=== PATIENT | female | born 1990 | race Caucasian/White ===

== ENCOUNTER → 2017-07-11 | Outpatient (CLI) | payer BC | LOC: FCPNEURO 20:00 | PROVIDERS: ATTEND Internal Medicine Sleep Medicine | DX: G47.50 Parasomnia, unspecified (principal) ==

== ENCOUNTER → 2017-08-16 | Outpatient (CLI) | payer BC | LOC: FIMAGING 15:20 | PROVIDERS: ATTEND Family Medicine | DX: M79.671 Pain in right foot (principal); M79.672 Pain in left foot ==

== ENCOUNTER 2017-08-26 09:42 | Observation (INO) | payer BC, MEDICAID ==
--- NOTE | 2017-08-26 09:59 | CPEKG ---
Heart Rate: 106 RR Interval: 566 P-R Interval: 128 QRSD Interval: 88 QT Interval: 344 QTC Interval: 457 P Nesbit: 64 QRS Nesbit: 76 T Wave Nesbit: -17 EKG Severity - BORDERLINE ECG - EKG Impression: SINUS TACHYCARDIA EKG Impression: BORDERLINE T ABNORMALITIES, INFERIOR LEADS Electronically Signed By: Sydney Riojas 26-Aug-2017 17:39:19
[2017-08-26] MEDS ORDERED: NS 1,000 ML IV ONE ×2 (10:09→11:27)
--- NOTE | 2017-08-26 10:09 | EDPHY ---
H & P Stated Complaint: High HR, low o2, diarrhea - Personal History LMP (Females 10-55): Unknown Current Tetanus/Diphtheria Vaccine: Yes Current Tetanus Diphtheria and Acellular Pertussis (TDAP): Yes - Medical/Surgical History Hx Asthma: No Hx Chronic Respiratory Disease: No Hx Diabetes: No Hx Cardiac Disease: No Hx Renal Disease: No Hx Cirrhosis: No Hx Alcoholism: No Hx HIV/AIDS: No Hx Splenectomy or Spleen Trauma: No Other PMH: Mast cell disease, Barrett - Social History Smoking Status: Never smoked Time Seen by Provider: 08/26/17 09:55 HPI/ROS: CHIEF COMPLAINT: Dyspnea, tachycardia, feeling faint HISTORY OF PRESENT ILLNESS: 27-year-old female history of postural orthostatic tachycardia syndrome, history of mast cell disease, arrives via private vehicle complaining of feeling dyspneic, feeling faint since this morning with new onset diarrhea this morning. She has been taking intermittent prednisone for the past few days, prescribed by her shear operator helper for possible vasculitis of her bilateral 4th toes. S This has been ongoing issue followed for the past several months. She denies acute urinary abnormality, denies chest pain, denies headache, denies nuchal rigidity, denies abdominal pain.he is on daily fludrocortisone 0.1 mg for orthostatic hypotension. PRIMARY CARE PROVIDER: Dr. Gemma Garza. Primary shear operator helper is Dr. Estrada (sp?) in [place] REVIEW OF SYSTEMS: A ten point review of systems was performed and is negative with the exception of the items mentioned in the HPI PAST MEDICAL & SURGICAL HISTORY: Mast cell disease. 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 No influenza vaccination this season SOCIAL HISTORY:nonsmoker. No drug use. No cocaine use. 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 Appears to be in no acute distress. 2) HEAD: Normocephalic, atraumatic 3) HEENT: Pupils equal, round, reactive to light bilaterally. Sclera anicteric. Nasopharynx, oropharynx, clear, no lesions. No intraoral lesions. No exudate. No trismus no drooling. Ears bilaterally with normal tympanic membranes. 4) NECK: Full range of motion, no meningeal signs. 5) LUNGS: Clear auscultation bilaterally, no wheezes, no rhonchi, no retractions. 6) HEART: Regular rate and rhythm, no murmur, no heave, no gallop. 7) ABDOMEN: No guarding, no rebound, no focal tenderness, negative McBurney's, negative Goodson's, negative Rovsing's, negative peritoneal sign, 8) MUSCULOSKELETAL: Moving all extremities, no focal areas of tenderness, no obvious trauma. No peripheral edema or discoloration. Bilateral 4th toes dorsal aspect have a slight erythematous appearance, nontender. 9) BACK: No CVA tenderness, no midline vertebral tenderness, no fluctuance, no step-off, no obvious trauma, no visual or palpable abnormality. 10) SKIN: No rash, no petechiae. 11) Psychiatric: Patient is oriented X 3, there is no agitation. DIFFERENTIAL DIAGNOSIS: (Erin Hassan) Constitutional: Initial Vital Signs Temperature (C) 36.9 C 08/26/17 10:00 Heart Rate 121 H 08/26/17 10:00 Respiratory Rate 18 08/26/17 10:00 Blood Pressure 129/92 H 08/26/17 10:00 O2 Sat (%) 98 08/26/17 10:00 O2 Delivery Mode Room Air Allergies/Adverse Reactions: NSAIDS (Non-Steroidal Anti-Inflamma Allergy (Severe, Verified 08/26/17 14:13) cromolyn Allergy (Verified 08/26/17 13:51) montelukast [From Singulair] Allergy (Verified 08/26/17 13:51) dyes Allergy (Severe, Uncoded 08/26/17 14:13) fluoroquinolone antibiotics Allergy (Uncoded 08/26/17 13:51) Home Medications: Medication Instructions Recorded Ascorbic Acid [Vitamin C 500 mg 500 mg PO BID 08/26/17 (*)] EPINEPHrine [Epipen 0.3 MG] 0.3 mg IM ONCE PRN 08/26/17 Famotidine [Pepcid 20 MG (*)] 40 mg PO BID 08/26/17 Fludrocortisone Acetate [Florinef 0.1 mg PO DAILY 08/26/17 0.1 MG (RX)] Levalbuterol Inhaler [Xopenex Hfa 1 puffs IH DAILY PRN 08/26/17 Inhaler (*)] Levocetirizine Dihydrochloride 10 mg PO TID 08/26/17 [Xyzal] Levothyroxine [Synthroid 25 mcg 25 mcg PO DAILY06 08/26/17 (*)] Norethindrone-E.estradiol-Iron 1 each PO DAILY 08/26/17 [Mibelas 24 Fe Chewable Tablet] Xolair 300mg 300 mg SQ Q21D 08/26/17 Zolpidem Tartrate [Ambien 5MG (*)] 10 mg PO HS 08/26/17 diphenhydrAMINE [Benadryl 12.5 mg PO DAILY PRN 08/26/17 12.5MG/5ML Oral Liquid (*)] methylPREDNISolone [Medrol Dose 1 each PO AD 08/26/17 Enrique] predniSONE 20 mg PO DAILY PRN 08/26/17 Medical Decision Making - Diagnostics Imaging Results: Imaging Impressions Chest X-Ray 08/26/17 09:57 Impression: Mild prominent interstitial markings to the right lung base could represent mild interstitial infiltrate or pneumonitis or possibly atelectasis. Images reviewed by myself (Erin Hassan) ED Course/Re-evaluation: 12:47 p.m.: Patient has been observed in the ER for several hours, given IV hydration, discussed her diagnostic results. She remains tachycardic in no 110 to 120s. She complains of lightheadedness and inability to ambulate without assistance secondary to lightheadedness. Her x-rays show a possible early infiltrate the right lower lobe. She has history of fluoroquinolone allergy. She has been given IV azithromycin. Plan will be admission.Care of patient under supervision of secondary supervising physician Dr Riojas with whom I discussed case . 12:55 P.M.: Consultation with hospitalist, Dayanna, admit to Dr. Blas ( Erin Hassan) Other Provider: The patient was evaluated and managed by the Physician Applications System Analyst. I discussed the patient's presentation and course with the midlevel provider with them and agree with the evaluation. My co-signature indicates that I have reviewed this chart and I agree with the findings and plan of care as documented. I am the secondary supervising physician. (Sydney Riojas) - Data Points Laboratory Results: Laboratory Results 08/26/17 10:10 08/26/17 10:10 08/26/17 08/26/17 08/26/17 10:10 10:10 10:10 WBC RBC Hgb Hct MCV MCH MCHC RDW Plt Count MPV Neut % (Auto) Lymph % (Auto) [place] % (Auto) Eos % (Auto) Baso % (Auto) Nucleat RBC Rel Count Absolute Neuts (auto) Absolute Lymphs (auto) Absolute Monos (auto) Absolute Eos (auto) Absolute Basos (auto) Absolute Nucleated RBC Immature Gran % Immature Gran # D-Dimer Sodium Potassium Chloride Carbon Dioxide Anion Gap BUN Creatinine Estimated GFR Glucose Calcium Troponin I < 0.012 ng/mL ng/mL (0.000-0.034) Beta HCG, Qual NEGATIVE Nasal Influenza A PCR NEGATIVE FOR FLU A (NEGATIVE) Nasal Influenza B PCR NEGATIVE FOR FLU B (NEGATIVE) 08/26/17 08/26/17 08/26/17 10:10 10:10 10:10 WBC 11.20 10^3/uL H 10^3/uL (3.80-9.50) RBC 4.70 10^6/uL 10^6/uL (4.18-5.33) Hgb 15.0 g/dL g/dL (12.6-16.3) Hct 42.8 % % (38.0-47.0) MCV 91.1 fL fL (81.5-99.8) MCH 31.9 pg pg (27.9-34.1) MCHC 35.0 g/dL g/dL (32.4-36.7) RDW 12.3 % % (11.5-15.2) Plt Count 298 10^3/uL 10^3/uL (150-400) MPV 8.9 fL fL (8.7-11.7) Neut % (Auto) 91.8 % H % (39.3-74.2) Lymph % (Auto) 6.3 % L % (15.0-45.0) [place] % (Auto) 1.0 % L % (4.5-13.0) Eos % (Auto) 0.1 % L % (0.6-7.6) Baso % (Auto) 0.5 % % (0.3-1.7) Nucleat RBC Rel Count 0.0 % % (0.0-0.2) Absolute Neuts (auto) 10.28 10^3/uL H 10^3/uL (1.70-6.50) Absolute Lymphs (auto) 0.71 10^3/uL L 10^3/uL (1.00-3.00) Absolute Monos (auto) 0.11 10^3/uL L 10^3/uL (0.30-0.80) Absolute Eos (auto) 0.01 10^3/uL L 10^3/uL (0.03-0.40) Absolute Basos (auto) 0.06 10^3/uL 10^3/uL (0.02-0.10) Absolute Nucleated RBC 0.00 10^3/uL 10^3/uL (0-0.01) Immature Gran % 0.3 % % (0.0-1.1) Immature Gran # 0.03 10^3/uL 10^3/uL (0.00-0.10) D-Dimer 0.33 ug/mLFEU ug/mLFEU (0.00-0.50) Sodium 143 mEq/L mEq/L (134-144) Potassium 4.0 mEq/L mEq/L (3.5-5.2) Chloride 105 mEq/L mEq/L (97-110) Carbon Dioxide 25 mEq/l mEq/l (22-31) Anion Gap 13 mEq/L mEq/L (8-16) BUN 8 mg/dL mg/dL (7-23) Creatinine 0.9 mg/dL mg/dL (0.6-1.0) Estimated GFR > 60 Glucose 92 mg/dL mg/dL (70-100) Calcium 9.8 mg/dL mg/dL (8.5-10.4) Troponin I Beta HCG, Qual Nasal Influenza A PCR Nasal Influenza B PCR Medications Given: Discontinued Medications Sodium Chloride (Ns) 1,000 mls @ 0 mls/hr IV ONCE ONE PRN Reason: Wide Open Stop: 08/26/17 10:10 Last Admin: 08/26/17 10:43 Dose: 1,000 mls Sodium Chloride (Ns) 1,000 mls @ 0 mls/hr IV ONCE ONE PRN Reason: Wide Open Stop: 08/26/17 11:28 Last Admin: 11/17/17 11:45 Dose: 1,000 mls Azithromycin 500 mg/ Dextrose 255 mls @ 255 mls/hr IV EDNOW ONE PRN Reason: Protocol Stop: 08/26/17 13:42 Last Admin: 08/26/17 13:21 Dose: 255 mls Famotidine/Sodium Chloride (Pepcid 20 Mg (Premix)) 50 mls @ 200 mls/hr IV EDNOW ONE Stop: 08/26/17 14:27 Last Admin: 08/26/17 15:37 Dose: 50 mls Departure - Departure Disposition: [facility] Inpatient Acute Clinical Impression: Persistent tachycardia, POTS (postural orthostatic tachycardia syndrome) Pneumonia Qualifiers: Pneumonia type: due to unspecified organism Laterality: right Lung location: lower lobe of lung Qualified Code(s): J18.1 - Lobar pneumonia, unspecified organism Condition: Fair
[2017-08-26 10:21] LABS: % IMMATURE GRANULYOCYTES 0.3 % (0.0-1.1); ABSOLUTE IMMATURE GRANULOCYTES 0.03 10^3/uL (0.00-0.10); ADD DIFF? NO; ADD MORPH? NO; ADD SCAN? NO; ATYPICAL LYMPHOCYTE FLAG 10 (0-99); FRAGMENT RBC FLAG 0 (0-99); HEMATOCRIT 42.8 % (38.0-47.0); LEFT SHIFT FLG 0 (0-99); LIPEMIA HEMOLYSIS FLAG 90 (0-99); MEAN CELL HEMOGLOBIN 31.9 pg (27.9-34.1); MEAN CELL VOLUME 91.1 fL (81.5-99.8); MEAN PLATELET VOLUME 8.9 fL (8.7-11.7); PLATELET CLUMPS FLAG 20 (0-99); PLATELET COUNT 298 10^3/uL (150-400); RED CELL DISTRIBUTION WIDTH 12.3 % (11.5-15.2)
[2017-08-26 10:41] LABS: ANION GAP 13 mEq/L (8-16); CALCIUM 9.8 mg/dL (8.5-10.4); CARBON DIOXIDE 25 mEq/l (22-31); CHLORIDE 105 mEq/L (97-110); CREATININE 0.9 mg/dL (0.6-1.0); GLOMERULAR FILTRATION RATE > 60; GLUCOSE 92 mg/dL (70-100); SODIUM 143 mEq/L (134-144)
[2017-08-26 12:28] LABS: COLOR PALE YELLOW; LEUKOCYTE ESTERASE,URINE NEGATIVE (NEGATIVE); NITRITE,URINE NEGATIVE (NEGATIVE)
[2017-08-26 12:35] LABS: BACTERIA NONE SEEN /hpf (NONE SEEN); WBC,URINE NONE SEEN /hpf (0-3)
[2017-08-26] MEDS ORDERED: AZITHROMYCIN IV 500 MG in D5W 250 ML IV ONE (12:43)
[2017-08-26] MEDS ORDERED: FAMOTIDINE 20 MG TAB ONE (14:10)
[2017-08-26] MEDS ORDERED: FAMOTIDINE 20 MG/NACL 50 ML IV ONE (14:13)
[2017-08-26] MEDS ORDERED: PROMETHAZINE HCL 25 MG/ML INJ IVP PRN (16:26)
[2017-08-26] MEDS ORDERED: ONDANSETRON DISINTEGRATING 4 MG TAB PO PRN (16:26)
[2017-08-26] MEDS ORDERED: ONDANSETRON 4 MG/2 ML VIAL IVP PRN (16:26)
[2017-08-26] MEDS ORDERED: ACETAMINOPHEN 325 MG TAB PO PRN (16:26)
[2017-08-26] MEDS ORDERED: diphenhydrAMINE 12.5 MG/5 ML UDCUP PO PRN (16:28)
[2017-08-26] MEDS ORDERED: LEVALBUTEROL INHALER 200 PUFFS/15 GM MDI IH PRN (16:28)
[2017-08-26] MEDS ORDERED: predniSONE 20 MG TAB PO PRN (16:28)
[2017-08-26] MEDS ORDERED: NS 1,000 ML IV SCH (16:30)
[2017-08-26] MEDS ORDERED: *MD ORDERING ONLY-MEDROL DOSE PAK PO SCH (16:30)
[2017-08-26] MEDS ORDERED: XOLAIR SQ SCH (16:30)
--- NOTE | 2017-08-26 17:00 | PDGENHP ---
History and Physical - Chief Complaint tachycardia, near syncope - History of Present Illness 27 yo F with hx of POTS as well as mast cell disease and more recently diagnosed with either toe vasculitis or skin changes related to Raynauds disease. She has had 2 weeks of GI symptoms in particular diarrhea, as well as shortness of breath and generalized malaise. She was started on a medrol dose enrique recently for this possible vasculitis and notes that when she took it today , it seemed to trigger a flare of her POTS. She states in the past it has been triggered mostly by illness such as infection. She has not had her HR as fast as it was today ever in the past. Along with this fast heart rate she has been unable to really walk and needed to get carried into the ER. She has had sob but no cough, no fevers or chills though she has felt flushed. Her bilateral 4th toes have been red and with areas of lesions on them. She has not had these biopsied but the forest scientist she saw ordered some blood work that she has not seen results from yet. History Information - Allergies/Home Medication List Allergies/Adverse Reactions: NSAIDS (Non-Steroidal Anti-Inflamma Allergy (Severe, Verified 08/26/17 14:13) cromolyn Allergy (Verified 08/26/17 13:51) montelukast [From Singulair] Allergy (Verified 08/26/17 13:51) dyes Allergy (Severe, Uncoded 08/26/17 14:13) fluoroquinolone antibiotics Allergy (Uncoded 08/26/17 13:51) Home Medications: Ascorbic Acid [Vitamin C 500 mg (*)] 500 mg PO BID 08/26/17 [Last Taken 08/26/17 ] EPINEPHrine [Epipen 0.3 MG] 0.3 mg IM ONCE PRN 08/26/17 [Last Taken Unknown] Famotidine [Pepcid 20 MG (*)] 40 mg PO BID 08/26/17 [Last Taken 08/26/17] Fludrocortisone Acetate [Florinef 0.1 MG (RX)] 0.1 mg PO DAILY 08/26/17 [Last Taken 08/26/17] Levalbuterol Inhaler [Xopenex Hfa Inhaler (*)] 1 puffs IH DAILY PRN 08/26/17 [ Last Taken Unknown] Levocetirizine Dihydrochloride [Xyzal] 10 mg PO TID 08/26/17 [Last Taken ] Levothyroxine [Synthroid 25 mcg (*)] 25 mcg PO DAILY06 08/26/17 [Last Taken ] Norethindrone-E.estradiol-Iron [Mibelas 24 Fe Chewable Tablet] 1 each PO DAILY 08/26/17 [Last Taken 08/26/17] Xolair 300mg 300 mg SQ Q21D 08/26/17 [Last Taken 08/25/17] Zolpidem Tartrate [Ambien 5MG (*)] 10 mg PO HS 08/26/17 [Last Taken 08/25/17] diphenhydrAMINE [Benadryl 12.5MG/5ML Oral Liquid (*)] 12.5 mg PO DAILY PRN 08/26 [Last Taken Unknown] methylPREDNISolone [Medrol Dose Enrique] 1 each PO AD 08/26/17 [Last Taken 08/26/17] predniSONE 20 mg PO DAILY PRN 08/26/17 [Last Taken Unknown] I have personally reviewed and updated: family history, medical history, social history, surgical history - Past Medical History asthma Additional medical history: POTS. mast cell disease. ? 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 Review of Systems: ROS: 10pt was reviewed & negative except for what was stated in HPI & below Physical Exam Physical Exam: Temp Pulse Resp BP Pulse Ox 37.2 C 112 H 12 125/72 H 92 08/26/17 15:20 08/26/17 15:20 08/26/17 15:20 08/26/17 15:20 08/26/17 15:20 Constitutional: no apparent distress, appears nourished Eyes: PERRL, anicteric sclera Ears, Nose, Mouth, Throat: moist mucous membranes Cardiovascular: regular rate and rhythym, no murmur, rub, or gallop Respiratory: no respiratory distress, no rales or rhonchi Gastrointestinal: normoactive bowel sounds, soft, non-tender abdomen Genitourinary: no bladder tenderness Skin: warm, erythema, other (erythema and violaceous plaques on 4th toe L > R) Musculoskeletal: full muscle strength Neurologic: AAOx3 Psychiatric: interacting appropriately, not anxious, not encephalopathic Lab Data & Imaging Review 08/26/17 10:10 08/26/17 10:10 WBC 11.20 10^3/uL (3.80-9.50) H 08/26/17 10:10 RBC 4.70 10^6/uL (4.18-5.33) 08/26/17 10:10 Hgb 15.0 g/dL (12.6-16.3) 08/26/17 10:10 Hct 42.8 % (38.0-47.0) 08/26/17 10:10 MCV 91.1 fL (81.5-99.8) 08/26/17 10:10 MCH 31.9 pg (27.9-34.1) 08/26/17 10:10 MCHC 35.0 g/dL (32.4-36.7) 08/26/17 10:10 RDW 12.3 % (11.5-15.2) 08/26/17 10:10 Plt Count 298 10^3/uL (150-400) 08/26/17 10:10 MPV 8.9 fL (8.7-11.7) 08/26/17 10:10 Neut % (Auto) 91.8 % (39.3-74.2) H 08/26/17 10:10 Lymph % (Auto) 6.3 % (15.0-45.0) L 08/26/17 10:10 [place] % (Auto) 1.0 % (4.5-13.0) L 08/26/17 10:10 Eos % (Auto) 0.1 % (0.6-7.6) L 08/26/17 10:10 Baso % (Auto) 0.5 % (0.3-1.7) 08/26/17 10:10 Nucleat RBC Rel Count 0.0 % (0.0-0.2) 08/26/17 10:10 Absolute Neuts (auto) 10.28 10^3/uL (1.70-6.50) H 08/26/17 10:10 Absolute Lymphs (auto) 0.71 10^3/uL (1.00-3.00) L 08/26/17 10:10 Absolute Monos (auto) 0.11 10^3/uL (0.30-0.80) L 08/26/17 10:10 Absolute Eos (auto) 0.01 10^3/uL (0.03-0.40) L 08/26/17 10:10 Absolute Basos (auto) 0.06 10^3/uL (0.02-0.10) 08/26/17 10:10 Absolute Nucleated RBC 0.00 10^3/uL (0-0.01) 08/26/17 10:10 Immature Gran % 0.3 % (0.0-1.1) 08/26/17 10:10 Immature Gran # 0.03 10^3/uL (0.00-0.10) 08/26/17 10:10 D-Dimer 0.33 ug/mLFEU (0.00-0.50) 08/26/17 10:10 Sodium 143 mEq/L (134-144) 08/26/17 10:10 Potassium 4.0 mEq/L (3.5-5.2) 08/26/17 10:10 Chloride 105 mEq/L (97-110) 08/26/17 10:10 Carbon Dioxide 25 mEq/l (22-31) 08/26/17 10:10 Anion Gap 13 mEq/L (8-16) 08/26/17 10:10 BUN 8 mg/dL (7-23) 08/26/17 10:10 Creatinine 0.9 mg/dL (0.6-1.0) 08/26/17 10:10 Estimated GFR > 60 08/26/17 10:10 Glucose 92 mg/dL (70-100) 08/26/17 10:10 Calcium 9.8 mg/dL (8.5-10.4) 08/26/17 10:10 Troponin I < 0.012 ng/mL (0.000-0.034) 08/26/17 10:10 Beta HCG, Qual NEGATIVE 08/26/17 10:10 Urine Color PALE YELLOW 08/26/17 Unknown Urine Appearance CLEAR 08/26/17 Unknown Urine pH 8.0 (5.0-7.5) H 08/26/17 Unknown Ur Specific [place] 1.008 (1.002-1.030) 08/26/17 Unknown Urine Protein NEGATIVE (NEGATIVE) 08/26/17 Unknown Urine Ketones NEGATIVE (NEGATIVE) 08/26/17 Unknown Urine Blood NEGATIVE (NEGATIVE) 08/26/17 Unknown Urine Nitrate NEGATIVE (NEGATIVE) 08/26/17 Unknown Urine Bilirubin NEGATIVE (NEGATIVE) 08/26/17 Unknown Urine Urobilinogen NEGATIVE EU (0.2-1.0) 08/26/17 Unknown Ur Leukocyte Esterase NEGATIVE (NEGATIVE) 08/26/17 Unknown Urine RBC 1-3 /hpf (0-3) 08/26/17 Unknown Urine WBC NONE SEEN /hpf (0-3) 08/26/17 Unknown Ur Epithelial Cells TRACE /lpf (NONE-1+) 08/26/17 Unknown Urine Bacteria NONE SEEN /hpf (NONE SEEN) 08/26/17 Unknown Urine Glucose NEGATIVE (NEGATIVE) 08/26/17 Unknown Nasal Influenza A PCR NEGATIVE FOR FLU A (NEGATIVE) 08/26/17 10:10 Nasal Influenza B PCR NEGATIVE FOR FLU B (NEGATIVE) 08/26/17 10:10 Visualized and Interpreted Chest x-ray results: Yes Chest X-Ray results: infiltrate (atelectasis versus pna RLL) Visualized and Interpreted EKG results: Yes EKG Interpretation: Positive for: T waves inversion EKG additional interpertation: sinus tachycardia Assessment & Plan Assessment: POTS (postural orthostatic tachycardia syndrome) (Acute) Pneumonia (Acute) 27 yo F with PMH of POTS, mast cell disease admitted with tachycardia and near syncope # tachycardia/near syncope: with known underlying POTS per her report, she is currently without care by cardiology and looking for a new shredder tender peat. Her HR remains in the low 110s but she is quite symptomatic especially when going from sitting to standing. Has received IVF already from ER and will not rebolus but continue at low rate. Will trend trops, monitor on tele and obtain an echo in the morning. She notes that she has a history of serial abnormal echo's but is not sure what was abnormal about them. # pna: suspect RLL pna noted on cxr, atelectasis versus pna. Given several days of sob, malaise and flushing and difficult to exclude concurrent pna, will plan to treat for a short course. Already received levofloxacin in ER and will continue. # leukocytosis: in setting of presumed pna, doubt driven by steroids as she notes only receiving one dose of dexamethasone, will trend # mast cell disease: followed by rheumatology/hematology and will continue her op meds, unclear if related to above # dispo: observation status, will likely be able to dc in am Patient new to my care. Old records reviewed and summarized as above.
[2017-08-26 19:20] LABS: LACGHOST ORDER
[2017-08-26] MEDS ORDERED: LIDOCAINE 1% 5 ML SDV ID ONE (19:45)
--- NOTE | 2017-08-26 20:15 | POSTOPPROG ---
Post Op Note Date of Operation: 08/26/17 Surgeon: Laron Mckeon Anesthesia: Local (Specify) Pre-op Diagnosis: rule out vasculitis Procedure: skin biopsy right 4th toe Inf/Abcess present in the surg proc area at time of surgery?: No Specimen(s): 3.5 mm punch skin anterior R 4th toe
[2017-08-26] MEDS ORDERED: FAMOTIDINE 20 MG TAB PO SCH (21:00)
[2017-08-26] MEDS ORDERED: ZOLPIDEM TARTRATE 5 MG TAB PO SCH (21:00)
[2017-08-26] MEDS ORDERED: ASCORBIC ACID 500 MG TAB PO SCH (21:00)
[2017-08-26] MEDS: FAMOTIDINE 40 MG PO SCH (21:24)
[2017-08-26] MEDS: LEVOCETIRIZINE DIHYDROCHLORIDE 10 MG PO SCH (21:24)
--- NOTE | 2017-08-26 22:39 | GOP ---
[f rep st] OPERATIVE REPORT DATE OF OPERATION: 08/26/2017 SURGEON: Laron Mckeon MD ANESTHESIA: Local. PREOPERATIVE DIAGNOSIS: Rule out vasculitis. POSTOPERATIVE DIAGNOSIS: Rule out vasculitis. PROCEDURE PERFORMED: Skin biopsy, right anterior 4th toe (3.5 mm punch). FINDINGS: SPECIMENS: Tissue submitted in formalin for permanent section. ESTIMATED BLOOD LOSS: Zero. DESCRIPTION OF PROCEDURE: After informed consent was obtained, the patient was positioned supine. T he right distal foot was prepped and draped in the usual fashion. Before proceeding, the patient con firmed consent and reason for the biopsy. 1% lidocaine plain was used to infiltrate the skin over the right 4th toe where she had discoloration for the past 2 months. A 3.5 mm punch of skin was obtained and from the subcutaneous tiss ues with iris scissors. This was placed in formalin. A single 4-0 Prolene suture was used to close the defect and a Band-Aid applied. Tissue was submitted in formalin for permanent section. COMPLICATIONS: None. /[id number]/MODL
[2017-08-26] MEDS ORDERED: ZOLPIDEM TARTRATE PO SCH (22:45)
[2017-08-26] MEDS ORDERED: traMADol 50 MG TAB PO PRN (22:53)
[2017-08-27] MEDS ORDERED: ONDANSETRON DISINTEGRATING 4 MG TAB PO PRN (05:30)
[2017-08-27 05:53] LABS: % IMMATURE GRANULYOCYTES 0.2 % (0.0-1.1); ABSOLUTE IMMATURE GRANULOCYTES 0.02 10^3/uL (0.00-0.10); ADD DIFF? NO; ADD MORPH? NO; ADD SCAN? NO; ATYPICAL LYMPHOCYTE FLAG 10 (0-99); FRAGMENT RBC FLAG 0 (0-99); HEMATOCRIT 36.3 % (38.0-47.0); LEFT SHIFT FLG 0 (0-99); LIPEMIA HEMOLYSIS FLAG 80 (0-99); MEAN CELL HEMOGLOBIN CONCENTR. 33.1 g/dL (32.4-36.7); MEAN CELL VOLUME 93.8 fL (81.5-99.8); MEAN PLATELET VOLUME 9.1 fL (8.7-11.7); PLATELET CLUMPS FLAG 0 (0-99); PLATELET COUNT 227 10^3/uL (150-400); RED BLOOD CELL COUNT 3.87 10^6/uL (4.18-5.33); RED CELL DISTRIBUTION WIDTH 12.4 % (11.5-15.2)
[2017-08-27] MEDS ORDERED: LEVOTHYROXINE 50 MCG TAB PO SCH (06:00)
[2017-08-27] MEDS ORDERED: LEVOTHYROXINE 25 MCG TAB PO SCH (06:00)
[2017-08-27 06:10] LABS: SEDIMENTATION RATE 7 MM/HR (0-20)
[2017-08-27 06:27] LABS: ANION GAP 7 mEq/L (8-16); C-REACTIVE PROTEIN < 5.0 mg/L (<10.0); CALCIUM 8.3 mg/dL (8.5-10.4); CARBON DIOXIDE 24 mEq/l (22-31); CHLORIDE 109 mEq/L (97-110); CREATININE 0.8 mg/dL (0.6-1.0); GLOMERULAR FILTRATION RATE > 60; GLUCOSE 78 mg/dL (70-100); POTASSIUM 3.9 mEq/L (3.5-5.2); SODIUM 140 mEq/L (134-144)
[2017-08-27 08:07] VITALS: BP 104/63; PULSE 93; RESP 13; TEMP 98.6; O2SAT 97
[2017-08-27] MEDS: FAMOTIDINE 40 MG PO SCH (08:12)
[2017-08-27] MEDS: LEVOCETIRIZINE DIHYDROCHLORIDE 10 MG PO SCH (08:13)
[2017-08-27] MEDS ORDERED: [UNRECOGNIZED DRUG - OTHER] PO SCH (09:00)
[2017-08-27] MEDS ORDERED: FLUDROCORTISONE ACETATE 0.1 MG TAB PO SCH (09:00)
--- NOTE | 2017-08-27 09:31 | GCON ---
[f rep st] CONSULTATION CARDIAC CONSULTATION DATE OF CONSULTATION: 08/27/2017 CHIEF COMPLAINT: Tachycardia. HISTORY OF PRESENT ILLNESS: This is a 27-year-old female, who has a diagnosis of POTS syndrome diagn osed in [place] a number of years ago and has been on chronic stable medications. She currently is on Florinef 0.1 mg p.o. daily. She is intolerant of other medications and apparently has contraindic ations to beta blockers due to her use of EpiPen's. She recently had a toe skin change consistent wi th Raynaud or possibly vasculitis. She had a biopsy done yesterday. She was on a Solu-Medrol Dosepa k and noted her heart rate was faster than her normal 80s to 90s, and she has near syncope apparently . She also was admitted with fevers. Overnight, she has had sinus rhythm with some sinus tachycardi a. Heart rate is now 86, which she says is basically her baseline. She apparently had history of an abnormal echocardiogram with a mitral valve prolapse and tricuspid regurgitation, last evaluated in 2014. She does have an appointment in a few weeks with a forestry workers in [place], where she lives. A t this point, she is asymptomatic. PAST HISTORY: Includes: 1. POTS as above. 2. A history of mast cell disease. 3. Asthma. HOME MEDICATIONS: Include vitamin C, Florinef, various albuterol inhalers, recent prednisone. REVIEW OF SYSTEMS: A 10-point system review is negative except as outlined in HPI. FAMILY HISTORY: None significant. 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 Lives in [place]. She is a non smoker. Does not have alcohol or drug abuse issues. EXAMINATION: VITAL SIGNS: Blood pressure is 104/63, heart rate of 80s to 90s sinus. GENERAL: Erika g female in no acute distress. HEENT: Mouth/oropharynx is clear. BACK: Without palpable tendernes s. LUNGS: Clear without wheezing. CARDIOVASCULAR: Regular rate and rhythm. I could not hear a mu rmur, gallop or rubs. No JVD. ABDOMEN: Soft, nontender. MUSCULOSKELETAL: No edema. LABORATORY DATA: White count 10, hemoglobin 12. Potassium 4.0 creatinine 0.9. Troponins negative. EKG: Sinus tachycardia. ASSESSMENT: 1. History of postural orthostatic tachycardia syndrome, on Florinef. Patient at baseline at this t kacy. Heart rate probably exacerbated by steroids, which she has had in the past and had a similar re action. She is on chronic stable medications from prior forestry workers and has followup with a new car diologist in [place] in the next week. At this point, no changes in cardiac medication. Continue hyd ration status as needed. 2. Questionable history of abnormal echocardiogram. Last echo in 2014. Will repeat echocardiogram at this time. 3. Possible vasculitis versus Raynaud's. Biopsy of her foot is pending. /[id number]/MODL
--- NOTE | 2017-08-27 10:44 | ECHO ---
[email or web address] [address] [address] Main: [phone] Fax: Transthoracic Echocardiogram Name: SHUN MCKEON MR#: [id number] Study Date: 08/27/2017 Study Time: 09:26 AM Date of : 1990 Age: 27 year(s) Height: 170.2 cm (67 in.) Weight: 61.24 kg (135 lb.) BSA: 1.71 m2 Gender: Female Examination: Echo Indication: POTS Image Quality: Contrast: Requested by: Desmond Blas BP: 104 mmHg/63 mmHg Heart Rate: Rhythm: Indication: POTS Procedure Staff Surface Supervisor: Nino Donaldson Reading Physician: David Galloway Requesting Provider: Conclusions: Normal size left ventricle. EF is 71 %. No regional wall motion abnormality. Normal size right ventricle. Normal RV function. Trivial mitral valve regurgitation. Mild tricuspid regurgitation is present. The pulmonary artery pressure is normal. There is no previous echocardiogram for comparison. Measurements: Chambers Valvular Assessment AV/MV Valvular Assessment TV/PV Normal Normal Normal Name Value Range Name Value Range Name Value Range Ao Araseli (MM): 2.2 cm (2.2 cm-3.7 AV Vmax: 1.29 m/s (1 m/s-1.7 TR Vmax: 2.46 mm/s ( - ) cm) m/s) TR PGmax: 24 mmHg ( - ) IVSd (2D): 0.7 cm (0.6 cm-1.1 AV maxP mmHg ( - ) syst. PAP: 29 mmHg ( - ) cm) LVOT Vmax: 0.93 m/s (0.7 m/s-1.1 PV Vmax: 0.87 m/s (0.6 m/s-0.9 LVDd (2D): 4.6 cm (3.9 cm-5.3 m/s) m/s) cm) MV E Vmax: 0.83 m/s ( - ) PV PGmax: 3 mmHg ( - ) LVDs (2D): 2.7 cm (2.1 cm-4 MV A Vmax: 0.59 m/s ( - ) cm) MV E/A: 1.41 ( - ) LVPWd (2D): 0.8 cm ( - ) LVEF (2D): 71 (>=54 %) Continued Measurements: Chambers Valvular Assessment AV/MV Valvular Assessment TV/PV Name Value Name Value Name Value Patient: SHUN MCKEON Study Date: 08/27/2017 Page 1 of 2 09:26 AM LADs Lon.4 cm MV E/E' Septal: 6.10 CVP (est.): 5 mmHg LA Area: 9.4 cm2 MV E/E' Lateral: 6.10 Findings: Left Ventricle: Normal size left ventricle. No LV hypertrophy. Normal global systolic LV function. EF is 71 %. No regional wall motion abnormality. Normal diastolic LV function. Right Ventricle: Normal size right ventricle. Normal RV function. Left Atrium: The left atrium is normal in size. Right Atrium: The right atrium is normal in size. Mitral Valve: The mitral valve is normal in appearance. Trivial mitral valve regurgitation. Aortic Valve: The aortic valve is normal in appearance and function. There is no aortic valve regurgitation. Tricuspid Valve: The tricuspid valve is normal in appearance and function. Mild tricuspid regurgitation is present. The pulmonary artery pressure is normal. Pulmonic Valve: The pulmonic valve is normal in appearance and function. Aorta: The aorta is normal. Pericardium: No pericardial effusion. (No Signature Object) Patient: SHUN MCKEON Study Date: 08/27/2017 Page 2 of 2 09:26 AM D:_[id number]
[2017-08-27] MEDS ORDERED: AZITHROMYCIN 250 MG TAB PO SCH (12:00)
--- NOTE | 2017-08-27 12:02 | PDDCSUM ---
Discharge Summary Discharge Summary: Dates of service 08/26-08/27/17 Procedures: skin biopsy Consultations: cardiology, general surgery Hospital course by problem: # tachycardia/near syncope: with known underlying POTS per her report, being treated with florinef as an OP. HR has been in the 90s but patient remains somewhat concerned about her sxs and that this represents something new wrong with her. Cardiology evaluated and do not recommend any changees in her current management. Echo wnl. PCP is now working her up for porphyria and placed orders for this while she is here--she can f/u with her PcP for further evaluation. Think this is unlikley. # pna: suspect early RLL pna noted on cxr, atelectasis versus pna. Will treat for short course with azithromycin. 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 Biopsy obtained last night and patient will f/u with her pcp for results. Holding off on further steroids for now. 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 DC home f/u with PCP Continue current medications and total 5 day course of azithro.
[2017-08-27] MEDS ORDERED: FAMOTIDINE 20 MG TAB PO ONE (14:08)
--- NOTE | 2017-08-27 14:49 | ASDISCHSUM ---
Discharge Information Plan Status:Home with No Needs Medically Cleared to Leave:08/26/2017 Discharge Date:08/27/2017 01:40 PM CM D/C Disposition:Home, Routine, Self-Care ADT D/C Disposition:Home, Routine, Self-Care Projected Discharge Date:08/27/2017 01:40 PM Transportation at D/C:Family Discharge Delay Reason: Follow-Up Date:08/27/2017 01:40 PM Discharge Slot: Final Diagnosis:Postural orthostatic tachycardia syndrome, PNA, mast cell disease, near syncope Placement Information Patient Contact Information Contact Name:TERESA Relationship: Address: Home Phone: Work Phone: City: Alternate Phone: State/[employer] Code: Email: Financial Information Financial Class: Primary Plan Desc:[employer]ICA[employer] HE[employer] 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 Pt admitted w/ postural orthostatic tachycardia syndrome, PNA and hx of mast cell dx. 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 Per notes, pt to discharge home independently w/ no identified needs. Pt to follow up as directed. IM not signed, not applicable. CM avail for any further issues or concerns. Date Signed: 08/27/2017 02:48 PM Electronically Signed By:Jessika Butler RN Intervention Information
--- NOTE | 2017-08-27 14:49 | ASMTCMCOM ---
CM Note CM Note Notes: Reviewed chart regarding discharge plan, pt's progress. Pt admitted w/ postural orthostatic tachycardia syndrome, PNA and hx of mast cell dx. 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 Per MD notes, pt to discharge home independently w/ no identified needs. Pt to follow up as directed. IM not signed, not applicable. CM avail for any further issues or concerns. Date Signed: 08/27/2017 02:48 PM Electronically Signed By:Jessika Butler RN
[2017-08-30 11:57] LABS: PORPHOBILINOGEN URINE QN 0.1 mcmol/L (<=1.3)
== END 2017-08-27 13:40 | disposition home or self-care (01) ==
LOC: F2W 15:00
PROVIDERS: ADMIT Internal Medicine; ATTEND Internal Medicine
PROC: 0HBMXZX Excision of Right Foot Skin, External Approach, Diagnostic (ICD-10-PCS; principal; 2017-08-26)
DX: R00.0 Tachycardia, unspecified (principal); R23.8 Other skin changes; R55 Syncope and collapse; J18.9 Pneumonia, unspecified organism; D72.829 Elevated white blood cell count, unspecified; D47.02 Systemic mastocytosis
CPT/HCPCS: 11100; 71020; 93005; 93306; G0378; 82397-90; 96374; J0456

== ENCOUNTER 2017-10-21 05:31 | Day surgery (SDC) | payer MEDICAID ==
[2017-10-21] MEDS ORDERED: ceFAZolin 2 GM/SWFI 2 GM/20 ML SYR IVP ONE (06:03)
[2017-10-21] MEDS ORDERED: LR 1,000 ML IV ONE (06:28)
[2017-10-21] MEDS ORDERED: MIDAZOLAM 2 MG/2 ML VIAL IVP ONE (06:56)
--- NOTE | 2017-10-21 06:56 | PDANEPAE ---
ANE History of Present Illness port placement ANE Past Medical History - Cardiovascular History Hx Hypertension: No Hx Arrhythmias: No Hx Chest Pain: No Hx Coronary Artery / Peripheral Vascular Disease: No Hx CHF / Valvular Disease: No Hx Palpitations: No Cardiovascular History Comment: POTS. - Pulmonary History Hx COPD: No Hx Asthma/Reactive Airway Disease: Yes Hx Oxygen in Use at Home: No Hx Sleep Apnea: No Sleep Apnea Screening Result - Last Documented: Negative Pulmonary History Comment: zopinex - Neurologic History Hx Cerebrovascular Accident: No Hx Seizures: No Hx Dementia: No - Endocrine History Hx Diabetes: No - Renal History Hx Renal Disorders: No - Liver History Hx Hepatic Disorders: No - Neurological & Psychiatric Hx Hx Neurological and Psychiatric Disorders: Yes Neurological / Psychiatric History Comment: raynards,disautonomia, - Cancer History Hx Cancer: No - Congenital Disorder History Hx Congenital Disorders: No - GI History Hx Gastrointestinal Disorders: Yes Gastrointestinal History Comment: gastroperisis - Other Health History 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 - Chronic Pain History Chronic Pain: No - Surgical History Prior Surgeries: none ANE Review of Systems Review of systems is: negative Review of Systems: - Exercise capacity METS (RN): 4 METS ANE Patient History - Allergies Allergies/Adverse Reactions: NSAIDS (Non-Steroidal Anti-Inflamma Allergy (Severe, Verified 10/21/17 06:18) cromolyn Allergy (Verified 10/21/17 06:18) montelukast [From Singulair] Allergy (Verified 10/21/17 06:18) dyes Allergy (Severe, Uncoded 08/26/17 14:13) fluoroquinolone antibiotics Allergy (Uncoded 08/26/17 13:51) - Home Medications Home medications: home medication list seen and reviewed Home Medications: Ascorbic Acid [Vitamin C 500 mg (*)] 08/26/17 [Last Taken 08/26/17] EPINEPHrine [Epipen 0.3 MG] 08/26/17 [Last Taken Unknown] Famotidine [Pepcid] 08/26/17 [Last Taken 08/26/17] Fludrocortisone Acetate [Florinef] 08/26/17 [Last Taken 08/26/17] Levalbuterol Inhaler [Xopenex Hfa Inhaler (*)] 08/26/17 [Last Taken Unknown] Levocetirizine Dihydrochloride [Xyzal] 08/26/17 [Last Taken 08/26/17] Levothyroxine Sodium 08/26/17 [Last Taken 08/26/17] Norethindrone-E.estradiol-Iron [Mibelas 24 Fe Chewable Tablet] 08/26/17 [Last Taken 08/26/17] Xolair 300mg 08/26/17 [Last Taken 10/21/17 05:00] Zolpidem Tartrate [Ambien 10 mg] 08/26/17 [Last Taken 08/25/17] diphenhydrAMINE [Benadryl 12.5MG/5ML Oral Liquid (*)] 08/26/17 [Last Taken Unknown] Azithromycin [Zithromax] 10/19/17 [Last Taken Unknown] - NPO status NPO Status: no food or drink >8 hours NPO Since - Liquids (Date): 10/20/17 NPO Since - Liquids (Time): 23:00 NPO Since - Solids (Date): 10/20/17 NPO Since - Solids (Time): 20:00 - Anes Hx Hx Anesthesia Complications (with details): hives with propofol in the past - Smoking Hx Smoking Status: Never smoked - Family Anes Hx Family Anes Hx: none Family Hx Anesthesia Complications: none ANE Labs/Vital Signs - Vital Signs Vital Signs: reviewed preoperatively; see RN documention for details Blood Pressure: 108/75 Heart Rate: 101 Respiratory Rate: 16 O2 Sat (%): 98 Height: 170.18 cm Weight: 58.967 kg ANE Physical Exam - Airway Neck exam: FROM Mallampati Score: Class 1 - Pulmonary Pulmonary: no respiratory distress - Cardiovascular Cardiovascular: regular rate and rhythym - ASA Status ASA Status: III ANE Anesthesia Plan Total IV Anesthesia: Yes
[2017-10-21] MEDS ORDERED: BUPIVACAINE 0.5% 30 ML SDV ONE (06:58)
--- NOTE | 2017-10-21 07:00 | PDHPUP ---
History & Physical Update H&P update statement: This history and physical update is based on an assessment of the patient which was completed after admission or registration (within 24 hours), but prior to the surgery/procedure. H&P update: H&P reviewed & patient examined, no change in patient's condition since H&P completed
[2017-10-21] MEDS ORDERED: PROPOFOL/EMULSION 500 MG/50 ML BOTTLE IV ONE (07:12)
[2017-10-21] MEDS ORDERED: LIDOCAINE 2% 100 MG/5 ML SYR ONE (07:12)
[2017-10-21] MEDS ORDERED: METOCLOPRAMIDE 10 MG/2 ML VIAL ONE (07:13)
[2017-10-21] MEDS ORDERED: NALOXONE HCL 0.4 MG/ML INJ IVP PRN (07:59)
[2017-10-21] MEDS ORDERED: ACETAMINOPHEN 500 MG TAB PO PRN (07:59)
[2017-10-21] MEDS ORDERED: PROPOFOL 200 MG/20 ML VIAL ONE (07:59)
[2017-10-21] MEDS ORDERED: ALBUTEROL 3 ML DEYVIAL IH PRN (07:59)
[2017-10-21] MEDS ORDERED: DEXAMETHASONE 4 MG/ML VIAL IVP PRN (07:59)
[2017-10-21] MEDS ORDERED: fentaNYL 100 MCG/2 ML INJ IVP PRN (07:59)
[2017-10-21] MEDS ORDERED: PROMETHAZINE HCL 25 MG/ML INJ IVP PRN (07:59)
[2017-10-21] MEDS ORDERED: ONDANSETRON 4 MG/2 ML VIAL IVP PRN (07:59)
[2017-10-21] MEDS ORDERED: HYDROCODONE/APAP 5/325 TAB PO PRN (07:59)
[2017-10-21] MEDS ORDERED: HYDROmorphONE/DILAUDID 1 MG/ML INJ IVP PRN (07:59)
[2017-10-21] MEDS ORDERED: OXYCODONE/APAP 5/325 TAB PO PRN (07:59)
--- NOTE | 2017-10-21 08:14 | POSTOPPROG ---
Post Op Note Date of Operation: 10/21/17 Surgeon: Kimberly Barney Anesthesiologist: patty Anesthesia: IV Sedation Pre-op Diagnosis: POSH, EDS, Post-op Diagnosis: same Indication: 27 yo with POSH and EDS Procedure: R subclavian groshong power port Findings: tip svc Inf/Abcess present in the surg proc area at time of surgery?: No
[2017-10-21 08:57] VITALS: O2SAT 97
[2017-10-21 09:26] VITALS: TEMP 97.7
[2017-10-21] MEDS ORDERED: fentaNYL 100 MCG/2 ML INJ ONE (09:28)
[2017-10-21 09:51] VITALS: BP 107/76; PULSE 87; RESP 14
--- NOTE | 2017-10-23 17:27 | GOP ---
[f rep st] OPERATIVE REPORT DATE OF OPERATION: 10/21/2017 SURGEON: Kimberly Barney MD ANESTHESIA: IV sedation. ANESTHESIOLOGIST: Waqar Mcdermott MD. 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 PROCEDURE PERFORMED: Right subclavian Groshong PowerPort placement. FINDINGS: Tip at the SVC. SPECIMENS: None. ESTIMATED BLOOD LOSS: 10 cc. INDICATIONS: The patient is a 27-year-old woman with postural hypotension who requires IV fluids on a regular basis. DESCRIPTION OF PROCEDURE: Moderate was brought into the operating room, placed supine on the table, and monitored anesthesia care with IV sedation was performed. She was placed in the Trendelenburg po sition. Her bilateral neck and chest were prepped and draped in the usual sterile fashion. I infilt rated all sites with 0.5% Marcaine prior to making incisions. I accessed her right subclavian vein w ith dark return of blood flow on the first attempt. I threaded the guidewire and removed the needle. Placement was confirmed with fluoroscopy. I created a pocket to accommodate the port in the right chest. I measured the catheter under fluoroscopy. I then could tunnel the catheter down to the port site and connected this to the port which had been flushed with saline. Using the Seldinger techniq ue, I placed a dilator and sheath over the wire. I removed the wire and the dilator. I placed the c atheter through the sheath and peeled away the sheath. Placement was confirmed with fluoroscopy. Th e port withdrew blood and was flushed with saline. The pocket was closed with 3-0 Vicryl followed by 4-0 Monocryl. Dermabond applied. I then re-accessed the port and placed a dressing. She was awake rae in the operating room, transferred to PACU in stable condition. The postoperative chest x-ray sh owed the port in good position without evidence of pneumothorax. /[id number]/MODL
== END 2017-10-21 09:51 | disposition home or self-care (01) ==
LOC: FSGY 05:31
PROVIDERS: ATTEND Surgery
PROC: B5161ZA Fluoroscopy of Right Subclavian Vein using Low Osmolar Contrast, Guidance (ICD-10-PCS; 2017-10-21)
PROC: 02H633Z Insertion of Infusion Device into Right Atrium, Percutaneous Approach (ICD-10-PCS; principal; 2017-10-21 07:15)
PROC: 0JH60XZ Insertion of Tunneled Vascular Access Device into Chest Subcutaneous Tissue and Fascia, Open Approach (ICD-10-PCS; principal; 2017-10-21 07:15)
DX: Q79.6 Ehlers-Danlos syndromes (principal); I95.1 Orthostatic hypotension; D89.40 Mast cell activation, unspecified
CPT/HCPCS: C1788; J1200; J1642; J2001; J2250; J2704; J2765; J3010

== ENCOUNTER → 2019-03-07 | Outpatient (CLI) | payer MEDICAID | LOC: BMCIMAGING 16:56 ==